=== PATIENT | female | born 1990 | race Caucasian/White ===

== ENCOUNTER 2024-01-07 17:30 | Outpatient (RCR) | payer SELFPAY | END 2024-01-12 23:59 | LOC: NS 17:30 | DX: Z71.3 Dietary counseling and surveillance (principal) ==

== ENCOUNTER 2024-04-18 12:09 | Outpatient (RCR) | payer SELFPAY | END 2024-05-14 23:59 | LOC: NS 12:09 | DX: Z71.3 Dietary counseling and surveillance (principal) ==